=== PATIENT | female | born 1980 | race African-American/Black ===

== ENCOUNTER 2018-06-09 04:19 | Inpatient (IN) | payer SELFPAY ==
[~2018-06-09] VITALS: Ht 167.6 cm; Wt 53.0 kg
[2018-06-09] MEDS ORDERED: GLUCAGON FOR INJ 1 MG VIAL (J1610) IM STA (04:42)
[2018-06-09] MEDS ORDERED: LIDOCAINE 2% MDV 20 ML VIAL As Ordered ONE (04:50)
[2018-06-09] MEDS ORDERED: DEXTROSE 50% 50 ML SYRINGE As Ordered ONE (05:09)
[2018-06-09] MEDS ORDERED: DEXTROSE 50% 50 ML SYRINGE IV STA (05:11)
[2018-06-09] MEDS ORDERED: fentaNYL 100 MCG/2 ML INJECTION (J3010) IV ONE (05:30)
[2018-06-09 05:36] LABS: BASO % 0.3 % (0.0-1.0); EOS % 0.4 % (0.0-3.0); HEMATOCRIT 36.4 % (36.0-47.0); HEMOGLOBIN 11.5 g/dl (12.0-15.5); LYMPH # 1.2 10^3/uL (1.5-4.5); LYMPH % 16.6 % (24.0-44.0); MEAN CORPUSCULAR HEMOGLOBIN 29.2 pg (27.0-33.0); MEAN CORPUSCULAR HGB CONC 31.6 g/dl (32.0-36.5); MEAN CORPUSCULAR VOLUME 92.4 fl (80.0-96.0); MONO # 0.3 10^3/uL (0.0-0.8); MONO % 4.3 % (0.0-5.0); NEUTROPHILS # 5.5 10^3/uL (1.8-7.7); PLATELET COUNT, AUTOMATED 321 10^3/uL (150-450); RED BLOOD COUNT 3.94 10^6/uL (4.00-5.40)
[2018-06-09] MEDS ORDERED: MOM 30ML SUSPENSION UDC PO PRN (06:00)
[2018-06-09] MEDS ORDERED: MAALOX 30 ML SUSP *UDC PO PRN (06:00)
[2018-06-09] MEDS: HumaLOG INSULIN (NovoLOG) PER UNIT SC SCH ×4 (06:00→20:58)
--- NOTE | 2018-06-09 06:11 | HPEPDOC ---
General Date of Admission Chief Complaint The patient is a 38-year-old female admitted with a reason for visit of Blood Glucose Problem. Source: Patient, RN/MD Exam Limitations: No limitations History of Present Illness Ms. Shea is a 38 years old woman with type 1 DM and Seizure disorder. She was brought to ER for evaluation of seizure and hypoglycemia. She apparently had a seizure at home witnessed by family. [id number] was called. EMS found pt unresponsive with blood sugar level of 21. Unable to establish IV access by EMS. On arrival to ER, FS was 15. A shot of glucagon was given, followed IV Glucose via IO access. Subsequently a triple lumen IJ catheter was inserted. Pt is now fully alert and oriented. Pt reports taking Levemir 20 units at noon, and Novolog 4 units before each meal. She had her meals and bed time snack yesterday as usual. She reports last hypoglycemic event quite a while ago. She has been on this insulin regimen for long time. Pt reports that her seizure has been pretty well controlled. Her doctor has recently decreased Keppra dose from 1000mg bid to 1500 mg daily in Mar. Pt denies any injury or complaints except for pain at the and IO insertion sites. Vitals are good. Labs are unremarkable. Head CT is pending. Allergies Coded Allergies: aspirin (Verified Allergy, Severe, tongue swelling, 06/09/18) haloperidol (Verified Allergy, Severe, unknown , 06/09/18) Past Medical History Medical History Type 1 DM, Seizure Surgical History Surgery of left leg for fracture Family History Significant Family History: No pertinent family hx Social History * Smoker: Denies Alcohol: Denies Drugs: denies A-FIB/CHADSVASC A-FIB History Current/History of A-Fib/PAF?: No Review of Systems Constitutional: Denies: Chills, Fever Eyes: Reports: Pain ENT: Denies: Head Aches Skin: Denies: Rash Pulmonary: Denies: Dyspnea, Cough Cardiovascular: Denies: Chest Pain Gastrointestinal: Denies: Nausea, Vomiting, Abdominal Pain Genitourinary: Denies: Dysuria Musculoskeletal: Denies: Neck Pain, Back Pain Neurological: Denies: Weakness, Numbness Psych: Reports: Mood Normal Physical Examination General Exam: Positive: Alert, Cooperative, No Acute Distress Eye Exam: Positive: PERRLA ENT Exam: Positive: Atraumatic Neck Exam: Positive: Supple Chest Exam: Positive: Clear to auscultation, Normal air movement Heart Exam: Positive: Rate Normal, Regular Rhythm Abdomen Exam: Positive: Normal bowel sounds, Soft, Tenderness Extremity Exam: Negative: Edema Neuro Exam: Positive: Normal Speech, Strength at 5/5 X4 ext Psych Exam: Positive: Mental status NL, Mood NL Vital Signs Vital Signs Date Time Temp Pulse Resp B/P (MAP) Pulse Ox O2 Delivery O2 Flow Rate FiO2 06/09/18 05:36 18 97 06/09/18 04:53 98 145/95 Room Air 06/09/18 04:27 96.6 Laboratory Data Labs 24H Laboratory Tests 2 06/09/18 05:28: Immature Granulocyte % (Auto) 0.4, White Blood Count 7.0, Red Blood Count 3.94L, Hemoglobin 11.5L, Hematocrit 36.4, Mean Corpuscular Volume 92.4, Mean Corpuscular Hemoglobin 29.2, Mean Corpuscular Hemoglobin Concent 31.6L, Red Cell Distribution Width 14.2, Platelet Count 321, Neutrophils (%) (Auto) 78.0H, Lymphocytes (%) (Auto) 16.6L, Monocytes (%) (Auto) 4.3, Eosinophils (%) (Auto) 0.4, Basophils (%) (Auto) 0.3, Neutrophils # (Auto) 5.5, Lymphocytes # (Auto) 1.2L, Monocytes # (Auto) 0.3, Eosinophils # (Auto) 0.0, Basophils # (Auto) 0.0, Nucleated Red Blood Cells % (auto) 0.0 CBC/BMP Laboratory Tests 06/09/18 05:28 Red Blood Count 3.94 L, Mean Corpuscular Volume 92.4, Mean Corpuscular Hemoglobin 29.2, Mean Corpuscular Hemoglobin Concent 31.6 L, Red Cell Distribution Width 14.2, Neutrophils (%) (Auto) 78.0 H, Lymphocytes (%) (Auto) 16.6 L, Monocytes (%) (Auto) 4.3, Eosinophils (%) (Auto) 0.4, Basophils (%) (Auto) 0.3, Neutrophils # (Auto) 5.5, Lymphocytes # (Auto) 1.2 L, Monocytes # (Auto) 0.3, Eosinophils # (Auto) 0.0, Basophils # (Auto) 0.0 Assessment/Plan 38 years old woman presenting with breakthrough seizure, likely due to recent decrease in Keppra dose and hypoglycemia. Breakthrough Seizure, likely due to recent decrease in Keppra dose and Hypoglycemia in Type 1 DM, Acute Metabolic Encephalopathy - Keep in observation - Increase Keppra dose back to previous (1000mg po bid), Seizure precaution - Blood sugar monitoring; hold long acting insulin for now, and keep only SSI; may re-start QUIÑONEZ later in the day based on blood sugar levels - No clear reason for hypoglycemia - f/u on head CT and Chemistry Plan / VTE VTE Prophylaxis Ordered?: No VTE Exclusion Mechanical Proph: Low Risk for VTE VTE Exclusion Pharmacological: At Low Risk for VTE Plan Anticipated Discharge: Home NINFA MONTES MD June 09, 2018 06:11
[2018-06-09] MEDS ORDERED: GLUCAGON FOR INJ 1 MG VIAL (J1610) SC PRN ×2 (06:15→17:00)
[2018-06-09] MEDS ORDERED: DEXTROSE 50% 50 ML SYRINGE IV PRN ×2 (06:15→17:00)
[2018-06-09] MEDS ORDERED: GLUCOSE 4 GM CHEW TABLET PO PRN ×2 (06:15→17:00)
[2018-06-09] MEDS ORDERED: LORazepam 2 MG/ML VIAL (J2060) IM PRN (06:15)
[2018-06-09 06:18] LABS: ALBUMIN 3.2 GM/DL (3.2-5.2); ALT/SGPT 16 U/L (12-78); BILIRUBIN,DIRECT < 0.1 MG/DL (0.0-0.2); BILIRUBIN,TOTAL 0.2 MG/DL (0.2-1.0); BLOOD UREA NITROGEN 19 MG/DL (7-18); CALCIUM LEVEL 8.1 MG/DL (8.5-10.1); CARBON DIOXIDE LEVEL 25 MEQ/L (21-32); CHLORIDE LEVEL 107 MEQ/L (98-107); CPK CREATINE PHOSPHOKINASE 210 U/L (26-192); CREATININE FOR GFR 1.08 MG/DL (0.55-1.30); GLOMERULAR FILTRATION RATE > 60.0 (>60); GLUCOSE, FASTING 326 MG/DL (70-100); MB/CK RELATIVE INDEX 2.19 (< OR =4); POTASSIUM SERUM 4.1 MEQ/L (3.5-5.1); SALICYLATE LEVEL < 1.7 MG/DL (5.0-30.0); SODIUM LEVEL 138 MEQ/L (136-145); THYROID STIMULATING HORMONE 0.981 uIU/ML (0.358-3.740); TOTAL PROTEIN 6.6 GM/DL (6.4-8.2); TROPONIN I < 0.02 NG/ML (< 0.10)
[2018-06-09 06:19] LABS: ACETAMINOPHEN LEVEL < 2.0 UG/ML (10.0-30.0); ETHYL ALCOHOL (ETHANOL) < 0.003 % (0.000-0.010)
--- NOTE | 2018-06-09 06:33 | REPVR ---
EXAM: CT Head Without Contrast EXAM DATE/TIME: 06/09/2018 5:59 AM CLINICAL HISTORY: 38 years old, female; Condition or disease; Other: Seizure TECHNIQUE: Imaging protocol: Axial computed tomography images of the head/brain without contrast. Radiation optimization: All CT scans at this facility use at least one of these dose optimization techniques: automated exposure control; mA and/or kV adjustment per patient size (includes targeted exams where dose is matched to clinical indication); or iterative reconstruction. COMPARISON: No relevant prior studies available. FINDINGS: Brain: Normal. No hemorrhage. No significant white matter disease. No edema. Ventricles: Normal. No ventriculomegaly. Bones/joints: Unremarkable. No acute fracture. Sinuses: Visualized sinuses are unremarkable. No acute sinusitis. Mastoid air cells: Visualized mastoid air cells are unremarkable. No mastoid effusion. Soft tissues: Unremarkable. IMPRESSION: No acute intracranial abnormality. Electronically signed by: Robbie Mead On 06/09/2018 06:32:41 AM
[2018-06-09] MEDS ORDERED: INSUH10VL SC (06:52)
[2018-06-09] MEDS ORDERED: LISI40TA PO (06:52)
[2018-06-09] MEDS ORDERED: INSUDET SC (06:52)
[2018-06-09] MEDS ORDERED: KEPP1TAB2 PO (06:53)
[2018-06-09 08:40] VITALS: BP 144/87
[2018-06-09] MEDS ORDERED: LISI-538 PO (09:31)
[2018-06-09] MEDS ORDERED: NOVO1INJ4 SC ×2 (09:38)
--- NOTE | 2018-06-09 09:51 | REP ---
CHEST, SINGLE VIEW: There is no evidence of acute infiltrate. No pleural effusion is seen. The heart is normal in size. The mediastinal silhouette is unremarkable. The visualized osseous structures are intact. A central venous catheter is seen with the tip in the right atrium. IMPRESSION: No acute pulmonary disease. Electronically Signed by Andres Cowan MD 06/09/2018 03:10 P
[2018-06-09] MEDS ORDERED: traMADol 50 MG TAB PO ONE (10:00)
[2018-06-09] MEDS: levETIRAcetam 250MG TABLET (KEPPRA) PO SCH ×2 (10:46→20:58)
[2018-06-09 12:00] VITALS: BP 104/78
[2018-06-09] MEDS: NITROFURANTOIN (MACROBID) 100 MG CAP PO SCH ×2 (15:18→20:58)
[2018-06-09] MEDS: ACETAMINOPHEN TAB 650MG DOSE (2X325MG) PO PRN ×2 (19:44→23:47)
[2018-06-09 22:00] VITALS: BP 112/82
[2018-06-10 06:00] VITALS: BP 149/92
[2018-06-10] MEDS ORDERED: SODIUM CHLORIDE 0.9% INJ 10 ML SYR IV PRN (07:30)
[2018-06-10] MEDS: HumaLOG INSULIN (NovoLOG) PER UNIT SC SCH ×4 (08:38→20:35)
[2018-06-10] MEDS: LEVEMIR (INSULIN DETEMIR) 1 UNITS/0.01ML SC SCH ×2 (08:38→20:35)
[2018-06-10] MEDS: NITROFURANTOIN (MACROBID) 100 MG CAP PO SCH ×2 (08:38→21:56)
[2018-06-10] MEDS: LISINOPRIL 20 MG TAB PO SCH ×2 (08:41→09:31)
[2018-06-10 08:51] LABS: BASO # 0.1 10^3/uL (0.0-0.2); BASO % 0.5 % (0.0-1.0); EOS # 0.1 10^3/uL (0.0-0.50); EOS % 1.2 % (0.0-3.0); HEMOGLOBIN 11.5 g/dl (12.0-15.5); LYMPH # 1.9 10^3/uL (1.5-4.5); LYMPH % 18.9 % (24.0-44.0); MEAN CORPUSCULAR HEMOGLOBIN 29.3 pg (27.0-33.0); MEAN CORPUSCULAR HGB CONC 31.9 g/dl (32.0-36.5); MEAN CORPUSCULAR VOLUME 91.8 fl (80.0-96.0); MONO # 0.6 10^3/uL (0.0-0.8); MONO % 5.6 % (0.0-5.0); NEUTROPHILS # 7.4 10^3/uL (1.8-7.7); NEUTROPHILS % 73.5 % (36.0-66.0); PLATELET COUNT, AUTOMATED 320 10^3/uL (150-450); RED BLOOD COUNT 3.92 10^6/uL (4.00-5.40); WHITE BLOOD COUNT 10.1 10^3/uL (4.0-10.0)
[2018-06-10 09:21] LABS: CALCIUM LEVEL 8.9 MG/DL (8.5-10.1); CREATININE FOR GFR 1.42 MG/DL (0.55-1.30); GLOMERULAR FILTRATION RATE 53.7 (>60); POTASSIUM SERUM 4.8 MEQ/L (3.5-5.1)
[2018-06-10] MEDS: levETIRAcetam 250MG TABLET (KEPPRA) PO SCH ×2 (09:30→20:34)
[2018-06-10 10:00] VITALS: BP 130/70
--- NOTE | 2018-06-10 11:30 | IPNPDOC ---
Text Note Date of Service The patient was seen on 06/10/18. NOTE Patient seen and examined at bedside. Still uncontrolled blood sugars. Complains of chronic abdominal pain, difficult walking and nausea no vomiting. General: NAD, disheveled, chronically ill appearing HEENT: NC/AT Lungs: CTA B/L Heart: +S1S2, RRR Abd: soft, NT, +BS Ext: no edema A/P: 38 yo female for hypoglycemia and seizure. #seizure - history somewhat unclear, but she states her last seizure was last Monday, and prior to that a few weeks ago; however she states her AED have been down titrated - continue with Keppra 750 BID - seizure precautions #DM - basal insulin with sliding scale - FS qac/hs - carb consistent diet A-FIB/CHADSVASC A-FIB History Current/History of A-Fib/PAF?: No VS,Fishbone, I+O VS, Fishbone, I+O Laboratory Tests 06/10/18 08:33 Red Blood Count 3.92 L, Mean Corpuscular Volume 91.8, Mean Corpuscular Hemoglobin 29.3, Mean Corpuscular Hemoglobin Concent 31.9 L, Red Cell Distribution Width 14.0, Neutrophils (%) (Auto) 73.5 H, Lymphocytes (%) (Auto) 18.9 L, Monocytes (%) (Auto) 5.6 H, Eosinophils (%) (Auto) 1.2, Basophils (%) (Auto) 0.5, Neutrophils # (Auto) 7.4, Lymphocytes # (Auto) 1.9, Monocytes # (Auto) 0.6, Eosinophils # (Auto) 0.1, Basophils # (Auto) 0.1, Calcium Level 8.9 Vital Signs Date Time Temp Pulse Resp B/P (MAP) Pulse Ox O2 Delivery O2 Flow Rate FiO2 06/10/18 09:31 142/94 06/10/18 06:00 97.3 90 16 98 06/09/18 06:31 Room Air I&O- Last 24 Hours up to 6 AM 06/10/18 06:00 Intake Total 1140 ml Output Total 325 ml Balance 815 ml GILBERT FRANCISCO MD June 10, 2018 11:30
[2018-06-10 14:00] VITALS: BP 120/60
[2018-06-10] MEDS: SODIUM CHLORIDE 0.9% INJ 10 ML SYR IV SCH ×2 (14:31→20:35)
[2018-06-10 18:00] VITALS: BP 106/65
[2018-06-10] MEDS: PERCOCET 5MG/325MG TAB PO PRN (20:35)
--- NOTE | 2018-06-10 20:58 | ECGEPIP ---
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
[2018-06-10 22:00] VITALS: BP 100/63
[2018-06-11 02:00] VITALS: BP 115/62
[2018-06-11] MEDS: SODIUM CHLORIDE 0.9% INJ 10 ML SYR IV SCH ×3 (05:50→22:00)
[2018-06-11 06:00] VITALS: BP 101/58
[2018-06-11] MEDS: NITROFURANTOIN (MACROBID) 100 MG CAP PO SCH (08:06)
[2018-06-11] MEDS: levETIRAcetam 250MG TABLET (KEPPRA) PO SCH ×2 (08:06→22:22)
[2018-06-11] MEDS: PERCOCET 5MG/325MG TAB PO PRN ×4 (08:06→22:29)
[2018-06-11] MEDS: LISINOPRIL 20 MG TAB PO SCH (08:07)
[2018-06-11 08:12] LABS: BASO # 0.1 10^3/uL (0.0-0.2); BASO % 0.6 % (0.0-1.0); EOS # 0.3 10^3/uL (0.0-0.50); HEMATOCRIT 35.9 % (36.0-47.0); HEMOGLOBIN 11.6 g/dl (12.0-15.5); LYMPH # 3.3 10^3/uL (1.5-4.5); LYMPH % 39.1 % (24.0-44.0); MEAN CORPUSCULAR HEMOGLOBIN 29.7 pg (27.0-33.0); MEAN CORPUSCULAR HGB CONC 32.3 g/dl (32.0-36.5); MEAN CORPUSCULAR VOLUME 91.8 fl (80.0-96.0); MONO # 0.6 10^3/uL (0.0-0.8); MONO % 6.6 % (0.0-5.0); NEUTROPHILS # 4.1 10^3/uL (1.8-7.7); NEUTROPHILS % 49.5 % (36.0-66.0); PLATELET COUNT, AUTOMATED 319 10^3/uL (150-450); RED BLOOD COUNT 3.91 10^6/uL (4.00-5.40); WHITE BLOOD COUNT 8.3 10^3/uL (4.0-10.0)
[2018-06-11 08:45] LABS: ALBUMIN 3.1 GM/DL (3.2-5.2); ALT/SGPT 14 U/L (12-78); BILIRUBIN,TOTAL 0.5 MG/DL (0.2-1.0); BLOOD UREA NITROGEN 19 MG/DL (7-18); CALCIUM LEVEL 8.8 MG/DL (8.5-10.1); CARBON DIOXIDE LEVEL 29 MEQ/L (21-32); CHLORIDE LEVEL 105 MEQ/L (98-107); CREATININE FOR GFR 1.26 MG/DL (0.55-1.30); GLOMERULAR FILTRATION RATE > 60.0 (>60); GLUCOSE, FASTING 179 MG/DL (70-100); POTASSIUM SERUM 4.6 MEQ/L (3.5-5.1); SODIUM LEVEL 139 MEQ/L (136-145); TOTAL PROTEIN 6.4 GM/DL (6.4-8.2)
[2018-06-11] MEDS: HumaLOG INSULIN (NovoLOG) PER UNIT SC SCH ×4 (09:19→22:22)
[2018-06-11] MEDS: LEVEMIR (INSULIN DETEMIR) 1 UNITS/0.01ML SC SCH ×2 (09:19→22:22)
[2018-06-11] MEDS ORDERED: KEPP1TAB2 PO (10:58)
[2018-06-11] MEDS ORDERED: PERCOCET PO ×2 (10:58→12:35)
[2018-06-11 11:22] LABS: HEMOGLOBIN A1c 10.5 %
[2018-06-11] MEDS ORDERED: KEPP250T5 PO (12:35)
[2018-06-11 14:00] VITALS: BP 88/52
[2018-06-11] MEDS: NS 1,000 ML IV SCH (16:55)
[2018-06-11] MEDS: CLINDAMYCIN 300 MG in APPROPRIATE DILUENT 1 EA IV SCH ×2 (18:02→23:41)
[2018-06-11 18:03] VITALS: BP 117/79
[2018-06-11 18:55] VITALS: BP 118/86
[2018-06-11 22:00] VITALS: BP 103/57
[2018-06-12] MEDS: CLINDAMYCIN 300 MG in APPROPRIATE DILUENT 1 EA IV SCH ×4 (05:32→23:28)
[2018-06-12] MEDS: NS 1,000 ML IV SCH (05:32)
[2018-06-12] MEDS: SODIUM CHLORIDE 0.9% INJ 10 ML SYR IV SCH (05:40)
[2018-06-12 06:00] VITALS: BP 110/61
[2018-06-12] MEDS: LISINOPRIL 20 MG TAB PO SCH (08:46)
[2018-06-12] MEDS: levETIRAcetam 250MG TABLET (KEPPRA) PO SCH ×2 (08:47→20:39)
[2018-06-12] MEDS: PERCOCET 5MG/325MG TAB PO PRN ×3 (08:47→23:28)
[2018-06-12] MEDS: HumaLOG INSULIN (NovoLOG) PER UNIT SC SCH ×4 (08:48→20:39)
[2018-06-12] MEDS: LEVEMIR (INSULIN DETEMIR) 1 UNITS/0.01ML SC SCH ×2 (10:11→20:40)
[2018-06-12 10:52] LABS: HEMATOCRIT 36.1 % (36.0-47.0); HEMOGLOBIN 10.9 g/dl (12.0-15.5); MEAN CORPUSCULAR HEMOGLOBIN 29.5 pg (27.0-33.0); MEAN CORPUSCULAR HGB CONC 30.2 g/dl (32.0-36.5); MEAN CORPUSCULAR VOLUME 97.6 fl (80.0-96.0); PLATELET COUNT, AUTOMATED 268 10^3/uL (150-450); WHITE BLOOD COUNT 5.8 10^3/uL (4.0-10.0)
[2018-06-12 11:07] LABS: BLOOD UREA NITROGEN 15 MG/DL (7-18); CALCIUM LEVEL 8.2 MG/DL (8.5-10.1); CARBON DIOXIDE LEVEL 24 MEQ/L (21-32); CHLORIDE LEVEL 109 MEQ/L (98-107); CREATININE FOR GFR 1.24 MG/DL (0.55-1.30); GLOMERULAR FILTRATION RATE > 60.0 (>60); GLUCOSE, FASTING 69 MG/DL (70-100); MAGNESIUM LEVEL 2.1 MG/DL (1.8-2.4); POTASSIUM SERUM 4.9 MEQ/L (3.5-5.1); SODIUM LEVEL 139 MEQ/L (136-145)
[2018-06-12 14:00] VITALS: BP 114/57
--- NOTE | 2018-06-12 16:54 | IPN ---
DATE: 06/12/2018 SUBJECTIVE: The patient is seen and examined in the room today. The patient denies any recurrence of seizures. The patient denies any nausea or vomiting. The patient stated that she is planning to go back to [place] in approximately 2 weeks. The patient does not have a primary care provider locally. OBJECTIVE: VITAL SIGNS: Temperature is 98.3, pulse 80, respirations 18, blood pressure 110/61, pulse oximetry 97% on room air. GENERAL: The patient is alert, awake, comfortable. HEENT: Normocephalic, atraumatic. Extraocular motors are grossly intact. CARDIOVASCULAR: Positive S1, S2. Regular rate. LUNGS: Clear to auscultation bilaterally. ABDOMEN: Soft, nontender, nondistended. Bowel sounds present. EXTREMITIES: No edema. LABORATORY DATA: WBC is 5.8, hemoglobin 10.9, hematocrit 36.1, platelet count is 268. Sodium is 139, potassium 4.9, chloride is 109, carbon dioxide 24, BUN 15, creatinine 1.24, GFR greater than 60, fasting glucose is 69, magnesium 2.1. ASSESSMENT AND PLAN: 1. Seizure. According to the patient, the patient resumed taper of her seizure medication. The patient is restarted on her normal dose currently, which is Keppra 750 mg by mouth twice a day. The patient is on seizure precautions. No recurrence of seizure noted since admission. 2. Diabetes. A1/c is 10.5. According to the patient, the patient is taking long acting 10 units at noontime. The patient covers herself with approximately 4 units of short acting insulin with meals. Currently, the patient is on increased dose of insulin. We will continue to titrate the patient's insulin regimen. Anticipate the patient will be discharged in the next 24 hours and we will try to establish a primary care provider locally after discharge. 3. Urinary tract infection (UTI). Urine culture is positive for Staphylococcus saprophyticus. The patient was started on antibiotics. Previously, the patient had hypotension briefly, the patient was on IV fluid. We will discontinue IV fluid and observe the patient. Currently, the patient is hemodynamically stable. 4. Deep vein thrombosis (DVT) prophylaxis. The patient is on thromboembolic compression stockings (TEDS).
[2018-06-12 22:00] VITALS: BP 112/60
[2018-06-13] MEDS: CLINDAMYCIN 300 MG in APPROPRIATE DILUENT 1 EA IV SCH ×2 (05:24→12:00)
[2018-06-13] MEDS: PERCOCET 5MG/325MG TAB PO PRN ×2 (05:25→11:12)
[2018-06-13 06:00] VITALS: BP 111/61
[2018-06-13 06:15] LABS: HEMOGLOBIN 10.9 g/dl (12.0-15.5); MEAN CORPUSCULAR HEMOGLOBIN 29.1 pg (27.0-33.0); MEAN CORPUSCULAR HGB CONC 32.1 g/dl (32.0-36.5); MEAN CORPUSCULAR VOLUME 90.7 fl (80.0-96.0); PLATELET COUNT, AUTOMATED 303 10^3/uL (150-450); RED BLOOD COUNT 3.75 10^6/uL (4.00-5.40); WHITE BLOOD COUNT 8.4 10^3/uL (4.0-10.0)
[2018-06-13 06:37] LABS: BLOOD UREA NITROGEN 15 MG/DL (7-18); CALCIUM LEVEL 8.5 MG/DL (8.5-10.1); CARBON DIOXIDE LEVEL 25 MEQ/L (21-32); CHLORIDE LEVEL 107 MEQ/L (98-107); GLOMERULAR FILTRATION RATE > 60.0 (>60); GLUCOSE, FASTING 137 MG/DL (70-100); MAGNESIUM LEVEL 2.1 MG/DL (1.8-2.4); POTASSIUM SERUM 4.5 MEQ/L (3.5-5.1); SODIUM LEVEL 138 MEQ/L (136-145)
[2018-06-13] MEDS: HumaLOG INSULIN (NovoLOG) PER UNIT SC SCH ×2 (08:51→11:57)
[2018-06-13] MEDS: levETIRAcetam 250MG TABLET (KEPPRA) PO SCH (08:52)
[2018-06-13 08:53] VITALS: BP 109/71
[2018-06-13] MEDS: LISINOPRIL 20 MG TAB PO SCH (08:53)
[2018-06-13] MEDS: LEVEMIR (INSULIN DETEMIR) 1 UNITS/0.01ML SC SCH (08:54)
[2018-06-13] MEDS ORDERED: NITR-67 PO (19:06)
--- NOTE | 2018-06-13 21:54 | DSES ---
DATE OF ADMISSION: 06/11/2018 DATE OF DISCHARGE: 06/13/2018 PRIMARY CARE PROVIDER: In [place] CONSULTANTS: None DISCHARGE DIAGNOSES: 1. Seizures. 2. Type 1 diabetes. 3. Hypoglycemia. 4. Urinary tract infection. HOSPITALIZATION COURSE: The patient is a 38-year-old female who presented to [facility] on 06/09/2018 after a seizure witnessed by the family. 911 was called, patient was brought in by ambulance. At the time of evaluation on site patient was found to have a glucose level of 21 and at the time patient could not have IV access established. Once patient arrived in the emergency room, patient was found to have a glucose level of 15. Intraosseous (IO) access established. Glucagon was given. Triple lumen internal jugular (IJ) catheter was inserted. Patient was admitted under hospitalist service and patient was placed on seizure precaution. Patient's seizure medication was adjusted. Patient's insulin regimen was also adjusted. Later, diagnostic workup was positive for urinary tract infection. Patient was started on antibiotics. No recurrence of seizure noted since admission. Patient's glucose regimen was also adjusted based on patient's need. On 06/13/2018, we have obtained a local healthcare provider appointment for the patient and patient is determined to be stable for discharge with recommendation to followup with healthcare provider at the scheduled time. Patient was instructed to finish the course of antibiotics for urinary tract infection (UTI). VITAL SIGNS AT DISCHARGE: Temperature 97.9, pulse 91, respiratory rate 18, blood pressure 111/61, pulse oximetry 99% in room air. LABORATORY DATA: On the date of discharge: WBC 8.4, hemoglobin 10.9, hematocrit 34, platelet count 303, sodium 138, potassium 4.5, chloride 107, carbon dioxide 25, BUN 15, creatinine 1.2, GFR greater than 60, fasting glucose 137, calcium 8.5, magnesium 2.1. Microbiology: Blood cultures show positive for Staphylococcus saprophyticus. IMAGING STUDIES: Chest x-ray on 06/09/2018 demonstrated no acute pulmonary disease. CT of the head without contrast on 06/09/2018 demonstrated no acute intracranial abnormalities. DISCHARGE MEDICATIONS: - Keppra 750 mg by mouth twice a day - nitrofurantoin 100 mg by mouth twice a day for 3 days - Percocet one tablet by mouth every 6 hours as needed, ten tablets dispensed - Levemir 10 units subcutaneous twice a day - Novolin per sliding scale before food - lisinopril 20 mg by mouth daily DISCHARGE INSTRUCTIONS: Discontinue lines. Discharge home. Activity as tolerated. Consistent carbohydrate as tolerated. Patient should followup with local healthcare provider in [place] within 1 week at the scheduled time. Patient's insulin regimen was discussed with the patient prior to discharge. Patient understands that patient should take long-acting as instructed and patient will continue using sliding scale for the short-acting insulin. DISCHARGE CONDITION: Fair. DISCHARGE TIME: Greater than 30 minutes
== END 2018-06-13 13:32 | disposition home or self-care (01) | DRG 420 ==
LOC: M ED 04:19 → M ED INP 05:43 → M PCU 08:25 → M MSPAV 14:09 → OBSVTOIN 06-11 16:40
PROVIDERS: ADMIT Internal Medicine; ATTEND Internal Medicine
DX: E10.649 Type 1 diabetes mellitus with hypoglycemia without coma (principal); B95.7 Other staphylococcus as the cause of diseases classified elsewhere; N39.0 Urinary tract infection, site not specified; G40.909 Epilepsy, unspecified, not intractable, without status epilepticus; Z88.6 Allergy status to analgesic agent; Z88.8 Allergy status to other drugs, medicaments and biological substances; Z79.899 Other long term (current) drug therapy; Z79.4 Long term (current) use of insulin

== ENCOUNTER 2018-06-15 09:57 | Emergency (ER) | payer SELFPAY ==
[~2018-06-15] VITALS: Ht 167.6 cm; Wt 55.0 kg
[~2018-06-15 09:57] MED LIST: INSUDET SC; INSUH10VL SC; KEPP1TAB2 PO; KEPP250T5 PO; LISI-538 PO; LISI40TA PO; NITR-67 PO; NOVO1INJ4 SC; PERCOCET PO
[2018-06-15] MEDS ORDERED: PERCOCET 5MG/325MG TAB PO ONE (11:45)
[2018-06-15] MEDS ORDERED: LISINOPRIL 20 MG TAB PO ONE (12:15)
[2018-06-15 15:00] VITALS: BP 120/79
--- NOTE | 2018-06-15 19:17 | ECGEPIP ---
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
== END 2018-06-15 15:20 | disposition home or self-care (01) ==
LOC: M ED 09:57 → EDBD 09:57 → M ED 15:20
DX: I45.10 Unspecified right bundle-branch block (principal); E10.649 Type 1 diabetes mellitus with hypoglycemia without coma; I50.9 Heart failure, unspecified; M32.9 Systemic lupus erythematosus, unspecified; I11.0 Hypertensive heart disease with heart failure; Z79.4 Long term (current) use of insulin; Z79.891 Long term (current) use of opiate analgesic; Z88.6 Allergy status to analgesic agent; Z88.8 Allergy status to other drugs, medicaments and biological substances

== ENCOUNTER 2018-07-03 15:40 | Emergency (ER) | payer SELFPAY ==
[~2018-07-03] VITALS: Ht 167.6 cm; Wt 53.6 kg
[2018-07-03] MEDS ORDERED: LASI20TA3 PO (18:53)
[2018-07-03] MEDS ORDERED: PRED10TA2 PO (19:29)
[2018-07-03] MEDS ORDERED: NAPR500T6 PO (19:29)
[2018-07-03 19:39] VITALS: BP 123/84
== END 2018-07-03 19:45 | disposition home or self-care (01) ==
LOC: M ED 15:40
DX: G89.29 Other chronic pain (principal); E11.9 Type 2 diabetes mellitus without complications; I10 Essential (primary) hypertension; G40.409 Other generalized epilepsy and epileptic syndromes, not intractable, without status epilepticus; Z79.899 Other long term (current) drug therapy; Z79.4 Long term (current) use of insulin; Z88.8 Allergy status to other drugs, medicaments and biological substances

== ENCOUNTER 2018-07-05 16:13 | Emergency (ER) | payer SELFPAY ==
[~2018-07-05] VITALS: Ht 167.6 cm; Wt 54.1 kg
[2018-07-05 16:13] VITALS: BP 151/99
[~2018-07-05 16:13] MED LIST changes: +LASI20TA3 PO; +NAPR500T6 PO; +PRED10TA2 PO
[2018-07-05] MEDS ORDERED: KETOROLAC 30 MG/ML VIAL (J1885) IV ONE (19:30)
[2018-07-05] MEDS ORDERED: KETOROLAC 60 MG/2 ML VIAL (J1885) IM ONE (21:00)
[2018-07-05 22:41] LABS: ALBUMIN 3.5 GM/DL (3.2-5.2); ALT/SGPT 24 U/L (12-78); BILIRUBIN,DIRECT < 0.1 MG/DL (0.0-0.2); BILIRUBIN,TOTAL 0.4 MG/DL (0.2-1.0); BLOOD UREA NITROGEN 16 MG/DL (7-18); CALCIUM LEVEL 9.1 MG/DL (8.5-10.1); CARBON DIOXIDE LEVEL 27 MEQ/L (21-32); CHLORIDE LEVEL 106 MEQ/L (98-107); CREATININE FOR GFR 1.14 MG/DL (0.55-1.30); GLOMERULAR FILTRATION RATE > 60.0 (>60); GLUCOSE, FASTING 74 MG/DL (70-100); POTASSIUM SERUM 4.1 MEQ/L (3.5-5.1); SODIUM LEVEL 141 MEQ/L (136-145); TOTAL PROTEIN 7.1 GM/DL (6.4-8.2)
== END 2018-07-05 23:20 | disposition left against medical advice (07) ==
LOC: M ED 16:13
DX: M79.10 Myalgia, unspecified site (principal); I50.9 Heart failure, unspecified; I11.0 Hypertensive heart disease with heart failure; E11.9 Type 2 diabetes mellitus without complications; G40.409 Other generalized epilepsy and epileptic syndromes, not intractable, without status epilepticus; M54.9 Dorsalgia, unspecified; F32.9 Major depressive disorder, single episode, unspecified; Z88.8 Allergy status to other drugs, medicaments and biological substances; Z88.6 Allergy status to analgesic agent; Z79.899 Other long term (current) drug therapy; Z79.1 Long term (current) use of non-steroidal anti-inflammatories (NSAID); Z79.4 Long term (current) use of insulin
CPT/HCPCS: 36415; 80048; 80076; 86140; 96372; 99282; J1885

== ENCOUNTER 2018-07-15 12:31 | Emergency (ER) | payer SELFPAY ==
[~2018-07-15] VITALS: Ht 167.6 cm; Wt 51.7 kg
[2018-07-15] MEDS ORDERED: INSULIN HUMAN REGULAR 100 UNITS in NS 99 ML IV SCH (12:57)
[2018-07-15] MEDS ORDERED: INSULIN IV RATE CHANGE DOCUMENTATION ML/HR XX SCH (13:00)
[2018-07-15] MEDS ORDERED: NS 1,000 ML IV ONE (13:00)
[2018-07-15] MEDS ORDERED: MORPHINE 2 MG/ML 1ML SYRINGE (J2270) IV ONE (13:45)
[2018-07-15] MEDS ORDERED: ONDANSETRON 4MG/2ML VIAL (J2405) IV ONE (14:00)
[2018-07-15 14:22] LABS: VENOUS BASE EXCESS -1.2 (-2.0-2.0); VENOUS HCO3 23.2 MEQ/L (23.0-27.0); VENOUS O2 SATURATION 98.7 % (60.0-80.0); VENOUS PARTIAL PRESSURE CO2 37.8 mmHg (38.0-50.0); VENOUS PH 7.405 UNITS (7.330-7.430); VENOUS STANDARD HCO3 23.5 MEQ/L; VENOUS TOTAL CO2 24.3 MEQ/L (24.0-28.0)
[2018-07-15 14:27] LABS: BASO % 0.4 % (0.0-1.0); EOS # 0.1 10^3/uL (0.0-0.50); EOS % 0.9 % (0.0-3.0); HEMATOCRIT 39.3 % (36.0-47.0); LYMPH # 1.2 10^3/uL (1.5-4.5); LYMPH % 12.5 % (24.0-44.0); MEAN CORPUSCULAR HEMOGLOBIN 30.5 pg (27.0-33.0); MEAN CORPUSCULAR HGB CONC 33.1 g/dl (32.0-36.5); MEAN CORPUSCULAR VOLUME 92.3 fl (80.0-96.0); MONO # 0.4 10^3/uL (0.0-0.8); MONO % 3.6 % (0.0-5.0); NEUTROPHILS # 8.1 10^3/uL (1.8-7.7); NEUTROPHILS % 82.3 % (36.0-66.0); PLATELET COUNT, AUTOMATED 313 10^3/uL (150-450); RED BLOOD COUNT 4.26 10^6/uL (4.00-5.40); WHITE BLOOD COUNT 9.9 10^3/uL (4.0-10.0)
[2018-07-15 14:38] LABS: INR 0.97
[2018-07-15 14:51] LABS: HEMOGLOBIN A1c 9.8 %
[2018-07-15 15:01] LABS: HCG, SERUM QUALITATIVE NEGATIVE (NEGATIVE)
[2018-07-15 15:05] LABS: ALBUMIN 3.4 GM/DL (3.2-5.2); ALT/SGPT 19 U/L (12-78); BILIRUBIN,DIRECT 0.2 MG/DL (0.0-0.2); BILIRUBIN,TOTAL 0.8 MG/DL (0.2-1.0); BLOOD UREA NITROGEN 17 MG/DL (7-18); CALCIUM LEVEL 8.7 MG/DL (8.5-10.1); CARBON DIOXIDE LEVEL 26 MEQ/L (21-32); CHLORIDE LEVEL 98 MEQ/L (98-107); CK-MB VALUE MASS 1.4 NG/ML (<3.6); CPK CREATINE PHOSPHOKINASE 121 U/L (26-192); CREATININE FOR GFR 1.46 MG/DL (0.55-1.30); ETHYL ALCOHOL (ETHANOL) < 0.003 % (0.000-0.010); GLUCOSE, FASTING 515 MG/DL (70-100); LIPASE 61 U/L (73-393); MB/CK RELATIVE INDEX 1.16 (< OR =4); POTASSIUM SERUM 4.1 MEQ/L (3.5-5.1); SODIUM LEVEL 136 MEQ/L (136-145); THYROID STIMULATING HORMONE 0.471 uIU/ML (0.358-3.740); TOTAL PROTEIN 7.3 GM/DL (6.4-8.2); TROPONIN I < 0.02 NG/ML (< 0.10)
--- NOTE | 2018-07-15 15:29 | REP ---
Chest one-view HISTORY: Chest pain Comparison: 06/09/2018 The lungs are clear. The heart is normal in size. The pulmonary vasculature is normal in appearance. Impression: No acute disease. Electronically Signed by Fish Soni MD 07/15/2018 03:21 P
[2018-07-15 16:52] VITALS: BP 105/69
--- NOTE | 2018-07-15 19:54 | ECGEPIP ---
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
== END 2018-07-15 16:56 | disposition home or self-care (01) ==
LOC: M ED 12:31
DX: E11.65 Type 2 diabetes mellitus with hyperglycemia (principal); R00.0 Tachycardia, unspecified; I10 Essential (primary) hypertension; Z79.899 Other long term (current) drug therapy; Z79.4 Long term (current) use of insulin; Z88.8 Allergy status to other drugs, medicaments and biological substances
CPT/HCPCS: 36415; 71045; 80048; 80076; 82550; 82553; 82803; 83036; 83690; 84443; 84484; 84703; 85025; 85610; 93005; 93041; 96361; 96374; 96375; 99285; G0480; J2270; J2405